=== PATIENT | female | born 1990 ===

== ENCOUNTER 2022-02-19 10:02 | Emergency (ER) | payer BC | END 2022-02-19 12:11 | disposition home or self-care (01) | LOC: DL.ED 10:02 | DX: S49.92XA Unspecified injury of left shoulder and upper arm, initial encounter (principal); Z88.8 Allergy status to other drugs, medicaments and biological substances | CPT/HCPCS: 73030-LT; 99283 ==

== ENCOUNTER 2024-06-28 11:43 | Observation (INO) | payer BC ==
[~2024-06-28 11:43] MED LIST: Phenylephrine HCl In 0.9% NaCl 1 MG/10 ML Syringe IVPUSH PRN; Ropivacaine 200 MG in Premix Bag 1 BAG EPIDUR SCH; Sodium Chloride 0.9% 1,000 ML IV SCH; Sodium Chloride 0.9% 10 ML Syringe FLUSH PRN; Sodium Chloride 0.9% 10 ML Syringe FLUSH SCH; ePHEDrine 50 MG/ML SDV IVPUSH PRN
[2024-06-28] MEDS: Terbutaline 1 MG/ML SDV SUBCUT ONE (12:30)
[2024-06-28] MEDS: Mineral Oil 30 ML UD Cup ONE (13:00)
== END 2024-06-28 15:50 ==
LOC: DL.OBCHECK 11:43 → DL.OB 11:46
PROVIDERS: ADMIT Family Medicine; ATTEND Family Medicine
DX: O32.1XX0 Maternal care for breech presentation, not applicable or unspecified (principal); Z3A.37 37 weeks gestation of pregnancy
CPT/HCPCS: 59412; 76805; 96372; A9270-GY; G0378; J3105

== ENCOUNTER 2024-07-03 00:23 | Inpatient (IN) | payer BC ==
[2024-07-03] MEDS ORDERED: Carboprost Tromethamine 250 MCG/1 ML Amp IM PRN (01:12)
[2024-07-03] MEDS ORDERED: Tranexamic Acid 1,000 MG in Sodium Chloride 0.9% 100 ML IV PRN (01:12)
[2024-07-03] MEDS ORDERED: Sodium Chloride 0.9% 10 ML Syringe FLUSH PRN (01:12)
[2024-07-03] MEDS ORDERED: Oxytocin 10 Units/1 ML SDV IM PRN (01:12)
[2024-07-03] MEDS ORDERED: Methylergonovine 0.2 MG Tab PO PRN (01:12)
[2024-07-03] MEDS ORDERED: Lactated Ringers 1,000 ML IV SCH ×2 (01:15→03:45)
[2024-07-03 01:22] LABS: BASOPHILS PERCENT AUTO 0.1 % (0.0-1.0); EOSINOPHILS PERCENT AUTO 1.5 % (1.0-3.0); HEMATOCRIT 37.7 % (37.0-47.0); HEMOGLOBIN 12.3 g/dL (12.0-16.0); LYMPHOCYTES PERCENT AUTO 16.8 % (20.5-50.1); MEAN CORPUSCULAR HEMOGLOBIN 27.9 pg (27.0-34.0); MEAN CORPUSCULAR HGB CONC 32.6 g/dL (33.0-35.0); MEAN CORPUSCULAR VOLUME 85.5 fL (80-100); MONOCYTES PERCENT AUTO 7.6 % (2-8); PLATELET COUNT,PLT 245 10^3/uL (150-450); RED BLOOD CELL COUNT 4.41 10^6/uL (4.2-5.4); WHITE BLOOD CELL COUNT,WBC 13.7 10^3/uL (5.0-10.0)
[2024-07-03] MEDS ORDERED: Oxytocin 10 Units/1 ML SDV ONE (01:29)
[2024-07-03] MEDS ORDERED: Ondansetron 4 MG/2 ML SDV ONE (01:29)
[2024-07-03] MEDS ORDERED: Dexamethasone 4 MG/ML SDV ONE (01:29)
[2024-07-03] MEDS ORDERED: Ketorolac 30 MG/ML SDV ONE (01:29)
[2024-07-03] MEDS ORDERED: Succinylcholine 200 MG/10 ML MDV ONE (01:30)
[2024-07-03] MEDS ORDERED: ceFAZolin 2 GM Vial ONE (01:30)
[2024-07-03] MEDS: Lactated Ringers 1,000 ML IV SCH (03:02)
[2024-07-03] MEDS: Oxytocin/Normal Saline 30 UNIT/500 ML BAG IV SCH (03:02)
[2024-07-03] MEDS ORDERED: Methylergonovine 0.2 MG/1 ML Amp IM PRN (03:44)
[2024-07-03] MEDS ORDERED: Naloxone 2 MG/2 ML Syringe IVPUSH PRN (03:44)
[2024-07-03] MEDS ORDERED: ePHEDrine 50 MG/ML SDV IVPUSH PRN (03:44)
[2024-07-03] MEDS ORDERED: Acetaminophen/oxyCODONE 325-5 MG Tab PO PRN ×2 (03:44)
[2024-07-03] MEDS ORDERED: diphenhydrAMINE 50 MG/ML SDV IVPUSH PRN (03:44)
[2024-07-03] MEDS ORDERED: Ondansetron 4 MG/2 ML SDV IVPUSH PRN (03:44)
[2024-07-03] MEDS: ceFAZolin 2 GM Vial IVPUSH ONE (04:56)
[2024-07-03] MEDS: Misoprostol 400 MCG (4 X 100 MCG TAB) RECTAL ONE (04:56)
[2024-07-03] MEDS: Ibuprofen 800 MG Tab PO SCH (04:56)
[2024-07-03] MEDS: Ketorolac 30 MG/ML SDV IVPUSH SCH ×2 (04:57→11:26)
[2024-07-03] MEDS: Simethicone 80 MG Tab.Chew PO SCH (08:06)
[2024-07-03] MEDS: Docusate Sodium 100 MG Cap PO PRN (08:06)
[2024-07-03] MEDS: Acetaminophen 325 MG Tab PO PRN (08:07)
[2024-07-03] MEDS: Prenatal Multivitamin with Calcium/Folic Acid/Iron Tab PO SCH (08:07)
[2024-07-03] MEDS: Sodium Chloride 0.9% 10 ML Syringe FLUSH SCH (08:08)
[2024-07-04 05:15] LABS: HEMATOCRIT 35.4 % (37.0-47.0); HEMOGLOBIN 11.1 g/dL (12.0-16.0); MEAN CORPUSCULAR HEMOGLOBIN 27.5 pg (27.0-34.0); MEAN CORPUSCULAR HGB CONC 31.4 g/dL (33.0-35.0); MEAN CORPUSCULAR VOLUME 87.8 fL (80-100); RED BLOOD CELL COUNT 4.03 10^6/uL (4.2-5.4); WHITE BLOOD CELL COUNT,WBC 13.7 10^3/uL (5.0-10.0)
[2024-07-04] MEDS: Ibuprofen 800 MG Tab PO SCH (07:12)
[2024-07-04] MEDS: diphenhydrAMINE 25 MG Tab PO PRN (07:13)
[2024-07-04] MEDS ORDERED: Phenylephrine 1% 10 MG/ML SDV IV ONE (13:14)
[2024-07-04] MEDS ORDERED: Morphine PF 10 MG/10 ML SDV EPIDUR ONE (13:14)
[2024-07-04] MEDS ORDERED: Ketorolac 30 MG/ML SDV IVPUSH ONE (13:14)
[2024-07-04] MEDS ORDERED: Ropivacaine 100 ML EPIDUR ONE (13:14)
[2024-07-04] MEDS ORDERED: Oxytocin/Normal Saline 30 UNIT/500 ML BAG IV ONE (13:14)
[2024-07-04] MEDS ORDERED: Dexamethasone 4 MG/ML SDV IV ONE (13:14)
[2024-07-04] MEDS ORDERED: Ondansetron 4 MG/2 ML SDV IV ONE (13:14)
== END 2024-07-04 13:15 | disposition home or self-care (01) | DRG 540 ==
LOC: UNDOADMOB 00:23 → DL.MS 00:23 → DL.OB 00:23 → OBSVTOIN 02:15 → DL.MS 02:15
PROVIDERS: ADMIT Family Medicine; ATTEND Family Medicine
PROC: 10D00Z1 Extraction of Products of Conception, Low, Open Approach (ICD-10-PCS; principal; 2024-07-03 01:45)
DX: O64.1XX0 Obstructed labor due to breech presentation, not applicable or unspecified (principal); O99.824 Streptococcus B carrier state complicating childbirth; Z3A.37 37 weeks gestation of pregnancy; Z37.0 Single live birth; O99.814 Abnormal glucose complicating childbirth
CPT/HCPCS: 01961; 36415; 59025; 84112; 85025; 85027; 86850; 86900; 86901; A9270-GY; J0330; J1100; J1885; J2270; J2371; J2405; J2590; J2795; J3490; J7120

== ENCOUNTER 2024-11-02 18:25 | Emergency (ER) | payer OTHER, BC ==
[2024-11-02] MEDS: Ibuprofen 600 MG Tab PO ONE (19:40)
== END 2024-11-02 21:27 | disposition home or self-care (01) ==
LOC: DL.ED 18:25
DX: S43.102A Unspecified dislocation of left acromioclavicular joint, initial encounter (principal); Z91.048 Other nonmedicinal substance allergy status; Z88.7 Allergy status to serum and vaccine; Z88.8 Allergy status to other drugs, medicaments and biological substances; W22.01XA Walked into wall, initial encounter
CPT/HCPCS: 73030; 99283; A9270